=== PATIENT | male | born 1985 | race Caucasian/White ===

== ENCOUNTER 2018-09-04 19:21 | Emergency (ER) | payer OTHER ==
[2018-09-04 19:57] VITALS: TEMP 96.9
[2018-09-04] MEDS ORDERED: FOLIC ACID 1 MG TAB PO ONE (20:10)
[2018-09-04] MEDS ORDERED: LORAZEPAM 0.5 MG TAB PO ONE (20:11)
[2018-09-04] MEDS ORDERED: THIAMINE 100 MG TAB PO ONE (20:11)
[2018-09-04] MEDS ORDERED: SODIUM CHLORIDE 0.9% 1000ML 1,000 ML IV SCH (20:15)
[2018-09-04] MEDS ORDERED: ONDANSETRON 4 MG ODT BU ONE (20:21)
[2018-09-04] MEDS ORDERED: ONDANSETRON 4 MG ODT ONE (20:21)
[2018-09-04] MEDS ORDERED: LORAZEPAM 0.5 MG TAB ONE (20:21)
[2018-09-04] MEDS ORDERED: SODIUM CHLORIDE 0.9% FLUSH 10 ML SOL IV PRN (20:21)
[2018-09-04] MEDS ORDERED: THIAMINE 100 MG TAB ONE (20:22)
[2018-09-04] MEDS ORDERED: FOLIC ACID 1 MG TAB ONE (20:22)
[2018-09-04 20:26] LABS: BASOPHILS % (AUTO) 2 % (0-3); EOSINOPHILS % (AUTO) 2 % (0-9); HEMATOCRIT 50 % (39-53); HEMOGLOBIN 16.4 gm/dl (13.5-17.7); LYMPHOCYTES % (AUTO) 42.7 % (10-50); MEAN CORPUSCULAR HEMOGLOBIN 32.3 pg (27.0-32.0); MEAN CORPUSCULAR HGB CONC 32.9 gm/dl (32.0-36.0); MEAN CORPUSCULAR VOLUME 98 fL (80-100); MONOCYTES % (AUTO) 8.2 % (0-12); NEUTROPHILS % (AUTO) 45.2 % (37-80)
[2018-09-04 20:42] LABS: ALBUMIN 3.6 gm/dl (3.4-5.0); CALCIUM 8.5 mg/dl (8.5-10.1); CARBON DIOXIDE 23.6 mEq/L (21-32); CREATININE 1.12 mg/dl (0.80-1.30); POTASSIUM 3.3 mMol/L (3.5-5.1); TOTAL PROTEIN 7.5 gm/dl (6.4-8.2)
[2018-09-04 20:44] LABS: ALCOHOL 0.389 gm/dl (0.000-0.08)
[2018-09-04 21:10] LABS: AMPHETAMINES NEGATIVE (NEGATIVE); BARBITUATES NEGATIVE (NEGATIVE); BENZODIAZEPINES NEGATIVE (NEGATIVE); COCAINE(COC) NEGATIVE (NEGATIVE); METHADONE NEGATIVE (NEGATIVE); METHAMPHETAMINES NEGATIVE (NEGATIVE); OPIATES(OPI) NEGATIVE (NEGATIVE); OXYCODONE(OXY) NEGATIVE (NEGATIVE); PROPOXYPHENE(PPX) NEGATIVE (NEGATIVE)
[2018-09-04 21:11] LABS: CANNABINOL(THC) NEGATIVE (NEGATIVE)
[2018-09-04 21:17] LABS: TRICYCLIC ANTIDEPRESSANTS NEGATIVE (NEGATIVE)
[2018-09-04 21:42] VITALS: BP 161/97; PULSE 105; RESP 18; O2SAT 97
== END 2018-09-04 21:50 | disposition home or self-care (01) | DRG 897 ==
LOC: ED 19:21
DX: F10.129 Alcohol abuse with intoxication, unspecified (principal)
CPT/HCPCS: 36415; 80053; 80305; 80307; 85025; 96365; 99283; 99285; A9270-GY

== ENCOUNTER 2018-09-17 16:20 | Emergency (ER) | payer OTHER ==
[2018-09-17] MEDS: SODIUM CHLORIDE 0.9% 1000ML 1,000 ML IV SCH ×2 (17:05→18:16)
[2018-09-17] MEDS ORDERED: ONDANSETRON HCL 4 MG/2 ML SOL IV ONE (17:07)
[2018-09-17] MEDS ORDERED: ONDANSETRON HCL 4 MG/2 ML SOL ONE (17:08)
[2018-09-17 17:28] LABS: BASOPHILS % (AUTO) 2 % (0-3); EOSINOPHILS % (AUTO) 0 % (0-9); HEMATOCRIT 52 % (39-53); HEMOGLOBIN 17.4 gm/dl (13.5-17.7); MEAN CORPUSCULAR HEMOGLOBIN 32.7 pg (27.0-32.0); MEAN CORPUSCULAR HGB CONC 33.2 gm/dl (32.0-36.0); MEAN CORPUSCULAR VOLUME 98 fL (80-100); MONOCYTES % (AUTO) 12.9 % (0-12); NEUTROPHILS % (AUTO) 53.1 % (37-80)
[2018-09-17 17:35] LABS: INR 1.05 (0.86-1.12)
[2018-09-17 17:49] LABS: ALBUMIN 3.6 gm/dl (3.4-5.0); ALCOHOL 0.395 gm/dl (0.000-0.08); BILIRUBIN,TOTAL 1.1 mg/dl (0.2-1.0); CARBON DIOXIDE 28.2 mEq/L (21-32); CREATININE 1.15 mg/dl (0.80-1.30); MAGNESIUM 2.2 mg/dl (1.8-2.4); THYROID STIMULATING HORMONE 2.536 uIU/ml (0.358-3.740); TOTAL PROTEIN 7.7 gm/dl (6.4-8.2)
[2018-09-17 17:50] LABS: POTASSIUM 2.8 mMol/L (3.5-5.1)
[2018-09-17] MEDS ORDERED: POTASSIUM CHLORIDE 10 MEQ TER PO ONE (17:52)
[2018-09-17] MEDS ORDERED: POTASSIUM CHLORIDE 10 MEQ TER ONE (17:53)
[2018-09-17 17:58] LABS: AMPHETAMINES NEGATIVE (NEGATIVE); BARBITUATES NEGATIVE (NEGATIVE); BENZODIAZEPINES NEGATIVE (NEGATIVE); CANNABINOL(THC) NEGATIVE (NEGATIVE); COCAINE(COC) NEGATIVE (NEGATIVE); METHADONE NEGATIVE (NEGATIVE); METHAMPHETAMINES NEGATIVE (NEGATIVE); OPIATES(OPI) NEGATIVE (NEGATIVE); OXYCODONE(OXY) NEGATIVE (NEGATIVE); PROPOXYPHENE(PPX) NEGATIVE (NEGATIVE); TRICYCLIC ANTIDEPRESSANTS NEGATIVE (NEGATIVE)
[2018-09-17] MEDS ORDERED: NICOTINE 7 MG PATCH TD SCH (18:30)
[2018-09-17] MEDS ORDERED: PROCHLORPERAZINE EDISYLATE 5 MG/ML SOL IV ONE (18:36)
[2018-09-17] MEDS ORDERED: PROCHLORPERAZINE EDISYLATE 5 MG/ML SOL ONE (18:37)
[2018-09-17 18:58] VITALS: O2SAT 94
[2018-09-17 20:08] VITALS: BP 137/86; PULSE 98; RESP 18; TEMP 98.4
[2018-09-17] MEDS ORDERED: PROMETHAZINE HYDROCHLORIDE 25 MG/ML SOL IV ONE (20:50)
[2018-09-17] MEDS ORDERED: PROMETHAZINE HYDROCHLORIDE 25 MG/ML SOL ONE (20:53)
== END 2018-09-17 21:30 | disposition short-term general hospital (02) | DRG 897 ==
LOC: ED 16:20
DX: F10.129 Alcohol abuse with intoxication, unspecified (principal); Y90.8 Blood alcohol level of 240 mg/100 ml or more; F43.10 Post-traumatic stress disorder, unspecified
CPT/HCPCS: 80053; 80305; 80307; 83735; 84443; 85025; 85610; 96365; 96374; 96375; 99283; 99285; J0780; J2405; J2550; A9270-GY

== ENCOUNTER 2018-11-29 11:46 | Inpatient (IN) | payer SELFPAY ==
[~2018-11-29 11:46] MED LIST: HYDROCHLOROTHIAZIDE 25 MG TAB PO SCH
[2018-11-29] MEDS ORDERED: ONDANSETRON HCL 4 MG/2 ML SOL IV ONE (11:56)
[2018-11-29] MEDS ORDERED: PANTOPRAZOLE SODIUM 40 MG/10 ML PDS IV ONE (11:56)
[2018-11-29] MEDS ORDERED: DEXTROSE/SALINE 0.45% 1,000 ML IV ONE (11:56)
[2018-11-29] MEDS ORDERED: PANTOPRAZOLE SODIUM 40 MG/10 ML PDS ONE (12:09)
[2018-11-29] MEDS ORDERED: ONDANSETRON HCL 4 MG/2 ML SOL ONE (12:09)
[2018-11-29 12:14] LABS: BASOPHILS % (AUTO) 1 % (0-3); EOSINOPHILS % (AUTO) 0 % (0-9); HEMATOCRIT 44 % (39-53); LYMPHOCYTES % (AUTO) 13.3 % (10-50); MEAN CORPUSCULAR HEMOGLOBIN 31.9 pg (27.0-32.0); MEAN CORPUSCULAR HGB CONC 36.3 gm/dl (32.0-36.0); MEAN CORPUSCULAR VOLUME 88 fL (80-100); MONOCYTES % (AUTO) 7.6 % (0-12); NEUTROPHILS % (AUTO) 78.1 % (37-80)
[2018-11-29] MEDS ORDERED: POTASSIUM CHLORIDE 2 MEQ/ML 60 MEQ, LIDOCAINE HCL 1% MDV 2 ML in SODIUM CHLORIDE 0.9% 1... IV ONE ×2 (12:26→21:45)
[2018-11-29] MEDS ORDERED: POTASSIUM CHLORIDE 2 MEQ/ML SOL IV ONE ×2 (12:28→21:36)
[2018-11-29 12:36] LABS: ALBUMIN 3.1 gm/dl (3.4-5.0); ALKALINE PHOSPHATASE 114 IU/L (46-116); ALT 84 IU/L (14-63); AST 94 IU/L (15-37); BILIRUBIN,TOTAL 2.2 mg/dl (0.2-1.0); BLOOD UREA NITROGEN 13 mg/dl (7-18); CALCIUM 8.8 mg/dl (8.5-10.1); CARBON DIOXIDE 36.8 mEq/L (21-32); CHLORIDE 71 mMol/L (98-107); CREATININE 1.35 mg/dl (0.80-1.30); GLUCOSE 173 mg/dl (74-106); THYROID STIMULATING HORMONE 2.533 uIU/ml (0.358-3.740); TOTAL PROTEIN 6.7 gm/dl (6.4-8.2)
[2018-11-29] MEDS ORDERED: LIDOCAINE HCL 1% MPF 30 SOL ONE ×2 (12:36→21:36)
[2018-11-29 12:37] LABS: ALCOHOL < 0.003 gm/dl (0.000-0.08); POTASSIUM 1.8 mMol/L (3.5-5.1); SODIUM 116 mMol/L (136-145)
[2018-11-29] MEDS ORDERED: PROCHLORPERAZINE EDISYLATE 5 MG/ML SOL ONE (12:40)
[2018-11-29] MEDS ORDERED: PROCHLORPERAZINE EDISYLATE 5 MG/ML SOL IV ONE (12:40)
[2018-11-29 13:59] LABS: APPEARANCE,URINE Clear; BILIRUBIN,URINE NEGATIVE (NEGATIVE); COLOR,URINE Dark yellow; GLUCOSE, URINE (UA) TRACE (NEGATIVE); KETONES,URINE NEGATIVE (NEGATIVE); LEUKOCYTE ESTERASE ,URINE NEGATIVE (NEGATIVE); NITRATE,URINE NEGATIVE (NEGATIVE); OCCULT BLOOD,URINE 2+ (NEG-TRACE); UROBILINOGEN,URINE 0.2 (0.2-1.0 EU)
[2018-11-29 14:10] LABS: AMPHETAMINES NEGATIVE (NEGATIVE); BARBITUATES NEGATIVE (NEGATIVE); BENZODIAZEPINES NEGATIVE (NEGATIVE); CANNABINOL(THC) NEGATIVE (NEGATIVE); COCAINE(COC) NEGATIVE (NEGATIVE); METHADONE NEGATIVE (NEGATIVE); METHAMPHETAMINES NEGATIVE (NEGATIVE); OPIATES(OPI) NEGATIVE (NEGATIVE); OXYCODONE(OXY) NEGATIVE (NEGATIVE); PROPOXYPHENE(PPX) NEGATIVE (NEGATIVE); TRICYCLIC ANTIDEPRESSANTS NEGATIVE (NEGATIVE)
[2018-11-29 14:15] LABS: BACTERIA RARE (< 1+); CRYSTALS NEGATIVE (0-3 AVE/HPF); EPITHELIAL CELLS 0-1 (SQUAMOUS); RBC,URINE NEG (0-3AV/HPF); WBC,URINE NEG (0-5AV/HPF)
[2018-11-29] MEDS ORDERED: ONDANSETRON HCL 4 MG/2 ML SOL IV PRN (14:22)
[2018-11-29] MEDS ORDERED: SODIUM CHLORIDE IV ONE (14:46)
[2018-11-29] MEDS ORDERED: NICOTINE 21 MG PATCH TD SCH (15:00)
[2018-11-29 18:16] LABS: CALCIUM 8.1 mg/dl (8.5-10.1); CARBON DIOXIDE 40.4 mEq/L (21-32); CREATININE 1.12 mg/dl (0.80-1.30)
[2018-11-29 18:19] LABS: POTASSIUM 2.1 mMol/L (3.5-5.1)
[2018-11-29] MEDS ORDERED: POTASSIUM CHLORIDE 10 MEQ CAPSULE PO ONE (18:23)
[2018-11-29] MEDS ORDERED: LORAZEPAM 2 MG/ML 10ML MDV 2 MG/ML VIAL IV PRN ×3 (18:24→19:43)
[2018-11-29] MEDS ORDERED: LIDOCAINE HCL 2% (VISCOUS) 15 ML SOL MT ONE (18:29)
[2018-11-29] MEDS ORDERED: ALUMINUM/MAGNESIUM 30 ML SUS PO ONE (18:30)
[2018-11-29] MEDS ORDERED: POTASSIUM CHLORIDE 10 MEQ TER ONE (18:32)
[2018-11-29] MEDS ORDERED: LORAZEPAM 0.5 MG TAB PO PRN (19:40)
[2018-11-29] MEDS: THIAMINE 100 MG TAB PO SCH (19:49)
[2018-11-29] MEDS: FOLIC ACID 1 MG TAB PO SCH (19:50)
[2018-11-29 20:25] LABS: POTASSIUM 2.6 mMol/L (3.5-5.1)
[2018-11-29] MEDS ORDERED: MIRTAZAPINE 15 MG TAB PO SCH (21:00)
[2018-11-29] MEDS: LIDOCAINE HCL 2% (VISCOUS) 15 ML SOL MT PRN (21:29)
[2018-11-29] MEDS: ALUMINUM/MAGNESIUM 30 ML SUS PO PRN (21:29)
[2018-11-30] MEDS: ALUMINUM/MAGNESIUM 30 ML SUS PO PRN (00:21)
[2018-11-30] MEDS: LIDOCAINE HCL 2% (VISCOUS) 15 ML SOL MT PRN (00:21)
[2018-11-30] MEDS: POTASSIUM CHLORIDE 10 MEQ CAPSULE PO SCH ×2 (03:24→03:25)
[2018-11-30 08:27] LABS: CALCIUM 8.4 mg/dl (8.5-10.1); CARBON DIOXIDE 36.6 mEq/L (21-32); CREATININE 1.11 mg/dl (0.80-1.30)
[2018-11-30 08:40] LABS: POTASSIUM 2.9 mMol/L (3.5-5.1)
[2018-11-30] MEDS: FOLIC ACID 1 MG TAB PO SCH (08:46)
[2018-11-30] MEDS: THIAMINE 100 MG TAB PO SCH (08:46)
[2018-11-30 08:50] VITALS: BP 138/82; PULSE 105; RESP 20; TEMP 98.2; O2SAT 95
[2018-11-30] MEDS ORDERED: PANTOPRAZOLE SODIUM 40 MG/10 ML PDS IV SCH (09:00)
[2018-12-04 14:41] LABS: *ALDOSTERONE 20 ng/dL (<=21)
[2018-12-04 14:59] LABS: *RENIN PLASMA LEVEL 30 ng/mL/h
== END 2018-11-30 10:07 | disposition left against medical advice (07) | DRG 101 ==
LOC: ED 11:46 → UNDOADMIN 13:30 → ACUTE CARE 13:30
PROVIDERS: ADMIT Family Medicine; ATTEND Family Medicine
DX: R56.9 Unspecified convulsions (principal); E87.1 Hypo-osmolality and hyponatremia; Z72.89 Other problems related to lifestyle; E87.6 Hypokalemia; R79.89 Other specified abnormal findings of blood chemistry; Z53.21 Procedure and treatment not carried out due to patient leaving prior to being seen by health care provider
CPT/HCPCS: 36415; 70450; 74176; 80048; 80053; 80305; 80307; 81001; 83735; 84132; 84295; 84443; 85025; 93005; 93012; 96365; 96374; 96375; 99222; 99231; 99285; J0780; J2405; J3480; A9270-GY; J2001

== ENCOUNTER 2018-12-11 19:21 | Inpatient (IN) | payer SELFPAY ==
[2018-12-11] MEDS ORDERED: SODIUM CHLORIDE 0.9% 1000ML 1,000 ML IV ONE ×2 (19:27→23:34)
[2018-12-11] MEDS ORDERED: THIAMINE 100 MG/ML 100 MG/ML SOL IV ONE (19:28)
[2018-12-11] MEDS ORDERED: ONDANSETRON HCL 4 MG/2 ML SOL IV ONE (19:29)
[2018-12-11] MEDS ORDERED: LORAZEPAM 2 MG/ML 10ML MDV 2 MG/ML VIAL IV PRN (19:31)
[2018-12-11 19:37] LABS: HEMATOCRIT 53 % (39-53); MEAN CORPUSCULAR HEMOGLOBIN 31.8 pg (27.0-32.0); MEAN CORPUSCULAR HGB CONC 34.7 gm/dl (32.0-36.0); MEAN CORPUSCULAR VOLUME 92 fL (80-100)
[2018-12-11] MEDS ORDERED: ONDANSETRON HCL 4 MG/2 ML SOL ONE (19:39)
[2018-12-11] MEDS ORDERED: THIAMINE 100 MG/ML 100 MG/ML SOL ONE (19:39)
[2018-12-11 19:42] LABS: HEMOGLOBIN 18.4 gm/dl (13.5-17.7)
[2018-12-11 19:49] LABS: ALBUMIN 3.8 gm/dl (3.4-5.0); ALKALINE PHOSPHATASE 147 IU/L (46-116); ALT 123 IU/L (14-63); AST 63 IU/L (15-37); BILIRUBIN,TOTAL 1.4 mg/dl (0.2-1.0); BLOOD UREA NITROGEN 18 mg/dl (7-18); CALCIUM 8.6 mg/dl (8.5-10.1); CARBON DIOXIDE 33.7 mEq/L (21-32); CHLORIDE 81 mMol/L (98-107); CREATININE 1.99 mg/dl (0.80-1.30); GLUCOSE 139 mg/dl (74-106); MAGNESIUM 1.8 mg/dl (1.8-2.4); SODIUM 132 mMol/L (136-145); TOTAL PROTEIN 8.2 gm/dl (6.4-8.2)
[2018-12-11 19:50] LABS: ALCOHOL 0.172 gm/dl (0.000-0.08)
[2018-12-11 19:51] LABS: ACETAMINOPHEN < 2 ug/ml (10-30); POTASSIUM 2.2 mMol/L (3.5-5.1); SALICYLATE < 2.8 mg/dl (2.8-30.0)
[2018-12-11] MEDS ORDERED: POTASSIUM CHLORIDE 2 MEQ/ML 60 MEQ, LIDOCAINE HCL 1% MDV 2 ML in SODIUM CHLORIDE 0.9% 1... IV ONE (19:51)
[2018-12-11 19:59] LABS: BAND NEUTROPHILS % (MANUAL) 6 %; BASOPHILS % (MANUAL) 0 % (0-3); EOSINOPHILS % (MANUAL) 0 % (0-9); LYMPHOCYTES % (MANUAL) 7 % (10-50); MONOCYTES % (MANUAL) 3 % (0-12); NEUTROPHILS % (MANUAL) 84 % (37-80); NORMAL RBCS PRESENT
[2018-12-11] MEDS ORDERED: MAGNESIUM SULFATE 1 GM/2 ML SOL IV ONE (20:12)
[2018-12-11] MEDS ORDERED: LIDOCAINE HCL 1% MPF 30 SOL ONE (20:14)
[2018-12-11] MEDS ORDERED: POTASSIUM CHLORIDE 2 MEQ/ML SOL IV ONE (20:14)
[2018-12-11] MEDS ORDERED: MAGNESIUM SULFATE 5 GM/10 ML SOL ONE (20:59)
[2018-12-11] MEDS ORDERED: ALUMINUM/MAGNESIUM 30 ML SUS PO PRN (21:56)
[2018-12-11 22:08] LABS: APPEARANCE,URINE Clear; BILIRUBIN,URINE 1+ (NEGATIVE); COLOR,URINE Orange; GLUCOSE, URINE (UA) NEGATIVE (NEGATIVE); KETONES,URINE 1+ (NEGATIVE); LEUKOCYTE ESTERASE ,URINE NEGATIVE (NEGATIVE); NITRATE,URINE POSITIVE (NEGATIVE); OCCULT BLOOD,URINE 2+ (NEG-TRACE)
[2018-12-11 22:16] LABS: ICTOTEST,URINE NEGATIVE (NEGATIVE); RBC,URINE 0-2 (0-3AV/HPF)
[2018-12-11 22:17] LABS: AMPHETAMINES NEGATIVE (NEGATIVE); BACTERIA 1+ (< 1+); BARBITUATES NEGATIVE (NEGATIVE); BENZODIAZEPINES NEGATIVE (NEGATIVE); CANNABINOL(THC) NEGATIVE (NEGATIVE); COCAINE(COC) NEGATIVE (NEGATIVE); CRYSTALS NEGATIVE (0-3 AVE/HPF); METHADONE NEGATIVE (NEGATIVE); METHAMPHETAMINES NEGATIVE (NEGATIVE); OPIATES(OPI) NEGATIVE (NEGATIVE); OXYCODONE(OXY) NEGATIVE (NEGATIVE); PROPOXYPHENE(PPX) NEGATIVE (NEGATIVE); TRICYCLIC ANTIDEPRESSANTS POSITIVE (NEGATIVE); WBC,URINE 0-2 (0-5AV/HPF)
[2018-12-11 22:39] LABS: CALCIUM 7.5 mg/dl (8.5-10.1); CARBON DIOXIDE 31.4 mEq/L (21-32); CREATININE 1.6 mg/dl (0.80-1.30)
[2018-12-11 22:42] LABS: POTASSIUM 2.1 mMol/L (3.5-5.1)
[2018-12-11] MEDS: ONDANSETRON HCL 4 MG/2 ML SOL IV PRN (22:55)
[2018-12-11] MEDS: LORAZEPAM 2 MG/ML SOL IV PRN ×2 (23:14→23:39)
[2018-12-11] MEDS: SODIUM CHLORIDE 0.9% 1000ML 1,000 ML IV ONE (23:20)
[2018-12-11] MEDS: SODIUM CHLORIDE 0.9% FLUSH 10 ML SOL IV SCH (23:21)
[2018-12-12] MEDS: SODIUM CHLORIDE 0.9% 1000ML 1,000 ML IV ONE (00:19)
[2018-12-12] MEDS: LORAZEPAM 2 MG/ML SOL IV PRN ×2 (02:08→04:06)
[2018-12-12] MEDS ORDERED: POTASSIUM CHLORIDE 2 MEQ/ML 60 MEQ, LIDOCAINE HCL 1% MDV 2 ML in SODIUM CHLORIDE 0.9% 1... IV ONE (05:45)
[2018-12-12] MEDS ORDERED: POTASSIUM CHLORIDE 2 MEQ/ML SOL IV ONE ×2 (05:58→05:59)
[2018-12-12] MEDS ORDERED: LIDOCAINE HCL 1% MPF 30 SOL ONE (06:03)
[2018-12-12] MEDS: ONDANSETRON HCL 4 MG/2 ML SOL IV PRN (06:11)
[2018-12-12] MEDS: SODIUM CHLORIDE 0.9% FLUSH 10 ML SOL IV SCH (06:14)
[2018-12-12] MEDS ORDERED: SODIUM CHLORIDE 0.9% 1000ML 1,000 ML IV SCH (07:15)
[2018-12-12 07:23] LABS: BASOPHILS % (AUTO) 1 % (0-3); EOSINOPHILS % (AUTO) 0 % (0-9); HEMATOCRIT 46 % (39-53); HEMOGLOBIN 15.5 gm/dl (13.5-17.7); LYMPHOCYTES % (AUTO) 15.5 % (10-50); MEAN CORPUSCULAR HEMOGLOBIN 31.9 pg (27.0-32.0); MEAN CORPUSCULAR HGB CONC 33.6 gm/dl (32.0-36.0); MEAN CORPUSCULAR VOLUME 95 fL (80-100); MONOCYTES % (AUTO) 7.5 % (0-12); NEUTROPHILS % (AUTO) 76.4 % (37-80)
[2018-12-12 07:43] LABS: BILIRUBIN,DIRECT 0.4 mg/dl (0.0-0.2); BILIRUBIN,TOTAL 1.6 mg/dl (0.2-1.0); MAGNESIUM 2.2 mg/dl (1.8-2.4); TOTAL PROTEIN 6.4 gm/dl (6.4-8.2)
[2018-12-12 07:44] LABS: ALCOHOL 0.004 gm/dl (0.000-0.08)
[2018-12-12] MEDS ORDERED: LORAZEPAM 0.5 MG TAB PO PRN (07:55)
[2018-12-12] MEDS ORDERED: FLUMAZENIL 1 MG/10 ML SOL IV ONE (08:32)
[2018-12-12 08:43] LABS: ABG PH 7.52 (7.35-7.45)
[2018-12-12] MEDS ORDERED: FOLIC ACID 1 MG TAB PO SCH (09:00)
[2018-12-12] MEDS ORDERED: THIAMINE 100 MG TAB PO SCH (09:00)
[2018-12-12] MEDS ORDERED: MULTIVITAMIN2 1 EA TAB PO SCH (09:00)
[2018-12-12] MEDS ORDERED: PATIENT EDUCATION 1 MISC PRN (09:16)
[2018-12-12 10:06] VITALS: BP 125/78; PULSE 97; RESP 20; TEMP 99.7; O2SAT 96
== END 2018-12-12 10:15 | disposition short-term general hospital (02) | DRG 641 ==
LOC: ED 19:21 → ACUTE CARE 21:31 → OBSVTOIN 12-12 08:20
PROVIDERS: ADMIT Internal Medicine; ATTEND Internal Medicine
DX: E83.42 Hypomagnesemia (principal); F10.231 Alcohol dependence with withdrawal delirium; F10.10 Alcohol abuse, uncomplicated; E87.6 Hypokalemia; Y90.6 Blood alcohol level of 120-199 mg/100 ml; R40.2362 Coma scale, best motor response, obeys commands, at arrival to emergency department; R40.2142 Coma scale, eyes open, spontaneous, at arrival to emergency department; R40.2252 Coma scale, best verbal response, oriented, at arrival to emergency department
CPT/HCPCS: 36415; 36600; 71045; 80048; 80053; 80076; 80305; 80307; 81001; 82803; 83735; 84132; 85007; 85025; 85027; 93005; 93012; 94762; 96365; 96366; 96374; 96375; 99219; 99285; J2060; J2405; J3475; J3480; A9270-GY; J2001; J3411; J3490

== ENCOUNTER 2018-12-15 19:14 | Emergency (ER) | payer SELFPAY ==
[2018-12-15 19:14] VITALS: O2SAT 96
[2018-12-15 21:44] VITALS: BP 142/99; PULSE 108
== END 2018-12-15 20:56 | disposition home or self-care (01) | DRG 563 ==
LOC: ED 19:14
DX: S62.339A Displaced fracture of neck of unspecified metacarpal bone, initial encounter for closed fracture (principal); S62.337A Displaced fracture of neck of fifth metacarpal bone, left hand, initial encounter for closed fracture; W22.01XA Walked into wall, initial encounter
CPT/HCPCS: 29125; 73130; 99282

== ENCOUNTER 2019-01-02 18:43 | Observation (INO) | payer MEDICAID ==
[2019-01-02] MEDS ORDERED: ONDANSETRON HCL 4 MG/2 ML SOL IV ONE (19:02)
[2019-01-02] MEDS ORDERED: ONDANSETRON HCL 4 MG/2 ML SOL ONE (19:03)
[2019-01-02] MEDS: SODIUM CHLORIDE 0.9% 1000ML 1,000 ML IV SCH ×4 (19:05→23:00)
[2019-01-02 19:47] LABS: BASOPHILS % (AUTO) 1 % (0-3); EOSINOPHILS % (AUTO) 0 % (0-9); HEMATOCRIT 52 % (39-53); LYMPHOCYTES % (AUTO) 11.1 % (10-50); MEAN CORPUSCULAR HEMOGLOBIN 31.3 pg (27.0-32.0); MEAN CORPUSCULAR HGB CONC 35.7 gm/dl (32.0-36.0); MEAN CORPUSCULAR VOLUME 88 fL (80-100); NEUTROPHILS % (AUTO) 80.3 % (37-80)
[2019-01-02 19:56] LABS: HEMOGLOBIN 18.5 gm/dl (13.5-17.7)
[2019-01-02] MEDS ORDERED: PROCHLORPERAZINE EDISYLATE 5 MG/ML SOL ONE (20:07)
[2019-01-02 20:12] LABS: ALBUMIN 3.1 gm/dl (3.4-5.0); BILIRUBIN,TOTAL 1.3 mg/dl (0.2-1.0); CALCIUM 8.3 mg/dl (8.5-10.1); CARBON DIOXIDE 36.1 mEq/L (21-32); CREATININE 1.24 mg/dl (0.80-1.30); MAGNESIUM 2.3 mg/dl (1.8-2.4)
[2019-01-02 20:14] LABS: POTASSIUM 1.7 mMol/L (3.5-5.1)
[2019-01-02] MEDS ORDERED: PROCHLORPERAZINE EDISYLATE 5 MG/ML SOL IV PRN (20:15)
[2019-01-02] MEDS ORDERED: POTASSIUM CHLORIDE 2 MEQ/ML SOL IV ONE (20:17)
[2019-01-02] MEDS ORDERED: POTASSIUM CHLORIDE 2 MEQ/ML 60 MEQ, LIDOCAINE HCL 1% MDV 2 ML in SODIUM CHLORIDE 0.9% 1... IV ONE (21:05)
[2019-01-02] MEDS ORDERED: LORAZEPAM 2 MG/ML SOL IV ONE (21:16)
[2019-01-02] MEDS ORDERED: LORAZEPAM 2 MG/ML SOL ONE (21:46)
[2019-01-02] MEDS ORDERED: LIDOCAINE HCL 1% MPF 30 SOL ONE (21:46)
[2019-01-02] MEDS: SODIUM CHLORIDE 0.9% FLUSH 10 ML SOL IV SCH (22:45)
[2019-01-02] MEDS: LORAZEPAM 0.5 MG TAB PO PRN (23:27)
[2019-01-03] MEDS: ONDANSETRON HCL 4 MG/2 ML SOL IV PRN ×3 (01:27→20:14)
[2019-01-03] MEDS: SODIUM CHLORIDE 0.9% 1000ML 1,000 ML IV SCH (03:06)
[2019-01-03] MEDS ORDERED: POTASSIUM CHLORIDE 10 MEQ TER PO ONE (03:26)
[2019-01-03] MEDS ORDERED: FUROSEMIDE 20mg SOL IV ONE (03:26)
[2019-01-03] MEDS: PROMETHAZINE HYDROCHLORIDE 25 MG/ML SOL IV PRN ×2 (03:48→18:41)
[2019-01-03] MEDS: LORAZEPAM 2 MG/ML SOL IV PRN ×3 (04:24→11:46)
[2019-01-03] MEDS: SODIUM CHLORIDE 0.9% FLUSH 10 ML SOL IV SCH ×6 (05:38→20:15)
[2019-01-03 07:29] LABS: ALBUMIN 2.5 gm/dl (3.4-5.0); BILIRUBIN,TOTAL 1.6 mg/dl (0.2-1.0); CARBON DIOXIDE 41.4 mEq/L (21-32); CREATININE 1.28 mg/dl (0.80-1.30); TOTAL PROTEIN 5.6 gm/dl (6.4-8.2)
[2019-01-03 07:42] LABS: POTASSIUM 2.8 mMol/L (3.5-5.1)
[2019-01-03 07:43] LABS: AMPHETAMINES NEGATIVE (NEGATIVE); BARBITUATES NEGATIVE (NEGATIVE); BENZODIAZEPINES POSITIVE (NEGATIVE); CANNABINOL(THC) NEGATIVE (NEGATIVE); COCAINE(COC) NEGATIVE (NEGATIVE); METHADONE NEGATIVE (NEGATIVE); METHAMPHETAMINES NEGATIVE (NEGATIVE); OPIATES(OPI) NEGATIVE (NEGATIVE); OXYCODONE(OXY) NEGATIVE (NEGATIVE); PROPOXYPHENE(PPX) NEGATIVE (NEGATIVE); TRICYCLIC ANTIDEPRESSANTS NEGATIVE (NEGATIVE)
[2019-01-03] MEDS ORDERED: POTASSIUM CHLORIDE 10 MEQ TER PO SCH (08:45)
[2019-01-03] MEDS: POTASSIUM CHLORIDE 10 MEQ TER PO SCH ×6 (09:17→23:56)
[2019-01-03] MEDS ORDERED: PROCHLORPERAZINE EDISYLATE 5 MG/ML SOL ONE (11:00)
[2019-01-03] MEDS: PROCHLORPERAZINE EDISYLATE 5 MG/ML SOL IV PRN (11:02)
[2019-01-03] MEDS: FOLIC ACID 1 MG TAB PO SCH (11:38)
[2019-01-03] MEDS: THIAMINE 100 MG TAB PO SCH (11:39)
[2019-01-03] MEDS: MULTIVITAMIN2 1 EA TAB PO SCH (11:39)
[2019-01-03] MEDS ORDERED: PROCHLORPERAZINE EDISYLATE 5 MG/ML SOL IV SCH (14:00)
[2019-01-03 18:08] LABS: CALCIUM 7.4 mg/dl (8.5-10.1); CARBON DIOXIDE 38.9 mEq/L (21-32); CREATININE 1.42 mg/dl (0.80-1.30); POTASSIUM 3.3 mMol/L (3.5-5.1)
[2019-01-03] MEDS: ALUMINUM/MAGNESIUM 30 ML SUS PO PRN (18:40)
[2019-01-03] MEDS: LORAZEPAM 0.5 MG TAB PO PRN ×2 (19:32→22:49)
[2019-01-03] MEDS ORDERED: NICOTINE 7 MG PATCH TD SCH (21:00)
[2019-01-04] MEDS: SODIUM CHLORIDE 0.9% FLUSH 10 ML SOL IV SCH ×2 (00:01→07:37)
[2019-01-04 00:14] VITALS: RESP 16
[2019-01-04] MEDS: LORAZEPAM 0.5 MG TAB PO PRN (01:01)
[2019-01-04] MEDS: ALUMINUM/MAGNESIUM 30 ML SUS PO PRN (01:50)
[2019-01-04] MEDS: PROCHLORPERAZINE EDISYLATE 5 MG/ML SOL IV PRN ×2 (07:37)
[2019-01-04 07:39] LABS: ALBUMIN 2.7 gm/dl (3.4-5.0); BILIRUBIN,TOTAL 1.1 mg/dl (0.2-1.0); CALCIUM 7.7 mg/dl (8.5-10.1); CARBON DIOXIDE 33.9 mEq/L (21-32); CREATININE 1.14 mg/dl (0.80-1.30); POTASSIUM 3.6 mMol/L (3.5-5.1); TOTAL PROTEIN 5.9 gm/dl (6.4-8.2)
[2019-01-04 07:44] VITALS: BP 123/69; PULSE 99; TEMP 98; O2SAT 98
[2019-01-04 07:59] LABS: BASOPHILS % (AUTO) 1 % (0-3); EOSINOPHILS % (AUTO) 0 % (0-9); HEMATOCRIT 44 % (39-53); HEMOGLOBIN 14.9 gm/dl (13.5-17.7); LYMPHOCYTES % (AUTO) 21.8 % (10-50); MEAN CORPUSCULAR HEMOGLOBIN 31.4 pg (27.0-32.0); MEAN CORPUSCULAR HGB CONC 33.6 gm/dl (32.0-36.0); MEAN CORPUSCULAR VOLUME 93 fL (80-100); MONOCYTES % (AUTO) 8.2 % (0-12); NEUTROPHILS % (AUTO) 68.7 % (37-80)
[2019-01-04] MEDS: THIAMINE 100 MG TAB PO SCH (10:00)
[2019-01-04] MEDS: MULTIVITAMIN2 1 EA TAB PO SCH (10:01)
[2019-01-04] MEDS: FOLIC ACID 1 MG TAB PO SCH (10:01)
== END 2019-01-04 11:30 | disposition home or self-care (01) | DRG 641 ==
LOC: ED 18:43 → ACUTE CARE 21:40
PROVIDERS: ADMIT Family Medicine; ATTEND Family Medicine
DX: E87.6 Hypokalemia (principal); E87.1 Hypo-osmolality and hyponatremia; R55 Syncope and collapse; F10.10 Alcohol abuse, uncomplicated; R79.89 Other specified abnormal findings of blood chemistry
CPT/HCPCS: 36415; 80048; 80053; 80305; 80307; 83735; 85025; 93012; 96365; 96366; 96374; 96375; 99217; 99219; 99285; J0780; J1940; J2060; J2405; J2550; J3480; A9270-GY; J2001

== ENCOUNTER 2019-01-19 06:55 | Emergency (ER) | payer MEDICAID ==
[2019-01-19] MEDS ORDERED: LORAZEPAM 2 MG/ML SOL ONE ×2 (07:06→09:19)
[2019-01-19] MEDS ORDERED: LORAZEPAM 2 MG/ML SOL IV ONE ×3 (07:08→09:20)
[2019-01-19] MEDS ORDERED: THIAMINE 100 MG/ML 100 MG/ML SOL IM ONE (07:12)
[2019-01-19] MEDS ORDERED: MAGNESIUM SULFATE 1 GM/2 ML SOL IV ONE (07:14)
[2019-01-19] MEDS ORDERED: FOLIC ACID 1 MG TAB PO ONE (07:14)
[2019-01-19] MEDS ORDERED: SODIUM CHLORIDE 0.9% 1000ML 1,000 ML IV NR (07:15)
[2019-01-19 07:22] VITALS: TEMP 99.4
[2019-01-19] MEDS ORDERED: THIAMINE 100 MG/ML 100 MG/ML SOL ONE (07:27)
[2019-01-19] MEDS ORDERED: FOLIC ACID 1 MG TAB ONE (07:27)
[2019-01-19 07:34] LABS: HEMATOCRIT 55 % (39-53); HEMOGLOBIN 18.5 gm/dl (13.5-17.7); MEAN CORPUSCULAR HEMOGLOBIN 30.9 pg (27.0-32.0); MEAN CORPUSCULAR HGB CONC 33.8 gm/dl (32.0-36.0); MEAN CORPUSCULAR VOLUME 92 fL (80-100)
[2019-01-19 07:46] LABS: ALBUMIN 3.7 gm/dl (3.4-5.0); ALKALINE PHOSPHATASE 175 IU/L (46-116); ALT 81 IU/L (14-63); AST 81 IU/L (15-37); BILIRUBIN,TOTAL 1.8 mg/dl (0.2-1.0); BLOOD UREA NITROGEN 26 mg/dl (7-18); CALCIUM 7.9 mg/dl (8.5-10.1); CARBON DIOXIDE 42.5 mEq/L (21-32); CHLORIDE 77 mMol/L (98-107); CREATININE 3.49 mg/dl (0.80-1.30); GLUCOSE 132 mg/dl (74-106); MAGNESIUM 0.9 mg/dl (1.8-2.4); SODIUM 133 mMol/L (136-145); TOTAL PROTEIN 8.1 gm/dl (6.4-8.2)
[2019-01-19] MEDS ORDERED: SODIUM CHLORIDE 0.9% 1000ML 1,000 ML IV ONE ×2 (07:50→08:48)
[2019-01-19 07:52] LABS: ABG PH 7.69 (7.35-7.45)
[2019-01-19 07:54] LABS: ALCOHOL < 0.003 gm/dl (0.000-0.08)
[2019-01-19 07:55] LABS: POTASSIUM 2.5 mMol/L (3.5-5.1)
[2019-01-19] MEDS ORDERED: MAGNESIUM SULFATE 5 GM/10 ML SOL ONE (07:57)
[2019-01-19] MEDS ORDERED: POTASSIUM CHLORIDE 2 MEQ/ML SOL IV ONE (07:57)
[2019-01-19] MEDS ORDERED: POTASSIUM CHLORIDE 2 MEQ/ML 60 MEQ, LIDOCAINE HCL 1% MDV 2 ML in SODIUM CHLORIDE 0.9% 1... IV ONE (07:59)
[2019-01-19] MEDS ORDERED: POTASSIUM CHLORIDE 10 MEQ TER PO ONE (07:59)
[2019-01-19] MEDS ORDERED: LIDOCAINE HCL 1% MPF 30 SOL ONE (08:06)
[2019-01-19 08:15] LABS: BAND NEUTROPHILS % (MANUAL) 8 %; EOSINOPHILS % (MANUAL) 0 % (0-9); LYMPHOCYTES % (MANUAL) 10 % (10-50); MONOCYTES % (MANUAL) 9 % (0-12); NEUTROPHILS % (MANUAL) 73 % (37-80)
[2019-01-19 08:16] LABS: BASOPHILS % (MANUAL) 0 % (0-3); NORMAL RBCS PRESENT
[2019-01-19] MEDS ORDERED: POTASSIUM CHLORIDE 10 MEQ TER ONE (08:17)
[2019-01-19] MEDS ORDERED: ONDANSETRON HCL 4 MG/2 ML SOL IV ONE (08:19)
[2019-01-19] MEDS ORDERED: ONDANSETRON HCL 4 MG/2 ML SOL ONE (08:19)
[2019-01-19] MEDS ORDERED: PROCHLORPERAZINE EDISYLATE 5 MG/ML SOL ONE (08:48)
[2019-01-19] MEDS ORDERED: PROCHLORPERAZINE EDISYLATE 5 MG/ML SOL IV ONE (08:48)
[2019-01-19 11:40] VITALS: BP 177/104; PULSE 115; RESP 25; O2SAT 97
== END 2019-01-19 09:52 | disposition short-term general hospital (02) | DRG 897 ==
LOC: ED 06:55
DX: F10.239 Alcohol dependence with withdrawal, unspecified (principal); R61 Generalized hyperhidrosis; R00.0 Tachycardia, unspecified; M62.838 Other muscle spasm; E87.6 Hypokalemia; E86.0 Dehydration
CPT/HCPCS: 36415; 36600; 70450; 80053; 80307; 82803; 83735; 85007; 85027; 93005; 96365; 96366; 96372; 96374; 96375; 99284; 99285; J0780; J2060; J2405; J3475; J3480; A9270-GY; J2001; J3411

== ENCOUNTER 2019-02-04 18:27 | Emergency (ER) | payer MEDICAID ==
[2019-02-04] MEDS ORDERED: THIAMINE 100 MG/ML 100 MG/ML SOL IV ONE (19:11)
[2019-02-04] MEDS ORDERED: FOLIC ACID 1 MG TAB PO ONE (19:11)
[2019-02-04] MEDS ORDERED: SODIUM CHLORIDE 0.9% 1000ML 1,000 ML IV ONE ×2 (19:11→20:19)
[2019-02-04] MEDS ORDERED: MAGNESIUM SULFATE 1 GM/2 ML SOL IV ONE (19:11)
[2019-02-04 19:15] LABS: BASOPHILS % (AUTO) 1 % (0-3); EOSINOPHILS % (AUTO) 0 % (0-9); HEMATOCRIT 54 % (39-53); HEMOGLOBIN 17.8 gm/dl (13.5-17.7); MEAN CORPUSCULAR HGB CONC 33.1 gm/dl (32.0-36.0); MEAN CORPUSCULAR VOLUME 94 fL (80-100); MONOCYTES % (AUTO) 7.8 % (0-12); NEUTROPHILS % (AUTO) 62.2 % (37-80)
[2019-02-04] MEDS ORDERED: ONDANSETRON HCL 4 MG/2 ML SOL IV ONE ×2 (19:15→19:56)
[2019-02-04] MEDS ORDERED: MAGNESIUM SULFATE 5 GM/10 ML SOL ONE (19:17)
[2019-02-04] MEDS ORDERED: THIAMINE 100 MG/ML 100 MG/ML SOL ONE (19:17)
[2019-02-04] MEDS ORDERED: ONDANSETRON HCL 4 MG/2 ML SOL ONE ×2 (19:17→19:55)
[2019-02-04] MEDS ORDERED: FOLIC ACID 1 MG TAB ONE (19:17)
[2019-02-04] MEDS: SODIUM CHLORIDE 0.9% FLUSH 10 ML SOL IV PRN ×3 (19:23→22:00)
[2019-02-04 19:35] LABS: AMPHETAMINES NEGATIVE (NEGATIVE); BARBITUATES NEGATIVE (NEGATIVE); BENZODIAZEPINES POSITIVE (NEGATIVE); CANNABINOL(THC) NEGATIVE (NEGATIVE); COCAINE(COC) NEGATIVE (NEGATIVE); METHADONE NEGATIVE (NEGATIVE); METHAMPHETAMINES NEGATIVE (NEGATIVE); OPIATES(OPI) NEGATIVE (NEGATIVE); OXYCODONE(OXY) NEGATIVE (NEGATIVE); PROPOXYPHENE(PPX) NEGATIVE (NEGATIVE); TRICYCLIC ANTIDEPRESSANTS NEGATIVE (NEGATIVE)
[2019-02-04] MEDS ORDERED: POTASSIUM CHLORIDE 2 MEQ/ML SOL IV ONE ×2 (19:35→19:37)
[2019-02-04 19:38] LABS: ALBUMIN 3.4 gm/dl (3.4-5.0); BILIRUBIN,TOTAL 0.5 mg/dl (0.2-1.0); CALCIUM 8.4 mg/dl (8.5-10.1); CARBON DIOXIDE 28.3 mEq/L (21-32); CREATININE 0.98 mg/dl (0.80-1.30); TOTAL PROTEIN 7.8 gm/dl (6.4-8.2)
[2019-02-04 19:39] LABS: POTASSIUM 2.3 mMol/L (3.5-5.1)
[2019-02-04 19:40] LABS: ALCOHOL 0.401 gm/dl (0.000-0.08)
[2019-02-04] MEDS ORDERED: SODIUM CHLORIDE IV ONE (19:46)
[2019-02-04] MEDS ORDERED: POTASSIUM CHLORIDE IV ONE (19:46)
[2019-02-04] MEDS ORDERED: PROCHLORPERAZINE EDISYLATE 5 MG/ML SOL IV ONE (20:18)
[2019-02-04] MEDS ORDERED: PROCHLORPERAZINE EDISYLATE 5 MG/ML SOL ONE (20:21)
[2019-02-04] MEDS ORDERED: NICOTINE 7 MG PATCH ONE (20:23)
[2019-02-04] MEDS ORDERED: NICOTINE 7 MG PATCH TD SCH (20:30)
[2019-02-04] MEDS ORDERED: LIDOCAINE HCL 1% MPF 30 SOL ONE (20:41)
[2019-02-04] MEDS ORDERED: POTASSIUM CHLORIDE 10 MEQ TER PO ONE (20:51)
[2019-02-04] MEDS ORDERED: POTASSIUM CHLORIDE 10 MEQ TER ONE (20:52)
[2019-02-04] MEDS ORDERED: PROMETHAZINE HYDROCHLORIDE 25 MG/ML SOL ONE ×2 (21:51→22:43)
[2019-02-04] MEDS ORDERED: ACETAMINOPHEN 500 MG 500 MG TAB ONE (21:51)
[2019-02-04] MEDS ORDERED: ACETAMINOPHEN 500 MG 500 MG TAB PO ONE (22:05)
[2019-02-04] MEDS ORDERED: PROMETHAZINE HYDROCHLORIDE 25 MG/ML SOL IV ONE ×2 (22:05→22:35)
[2019-02-05] MEDS ORDERED: PROCHLORPERAZINE EDISYLATE 5 MG/ML SOL IV ONE (00:38)
[2019-02-05] MEDS ORDERED: PROCHLORPERAZINE EDISYLATE 5 MG/ML SOL ONE (00:39)
[2019-02-05] MEDS: SODIUM CHLORIDE 0.9% FLUSH 10 ML SOL IV PRN ×2 (00:43→01:30)
[2019-02-05] MEDS ORDERED: SODIUM CHLORIDE 0.9% 1000ML 1,000 ML IV ONE (01:14)
[2019-02-05] MEDS ORDERED: PANTOPRAZOLE SODIUM 40 MG/10 ML PDS IV ONE (01:21)
[2019-02-05] MEDS ORDERED: PANTOPRAZOLE SODIUM 40 MG/10 ML PDS ONE (01:26)
[2019-02-05 02:38] LABS: POTASSIUM 3.4 mMol/L (3.5-5.1)
[2019-02-05 02:39] LABS: ALCOHOL 0.078 gm/dl (0.000-0.08)
[2019-02-05] MEDS ORDERED: ONDANSETRON HCL 4 MG/2 ML SOL IV PRN (02:48)
[2019-02-05] MEDS ORDERED: LORAZEPAM 2 MG/ML SOL IV ONE (02:48)
[2019-02-05] MEDS ORDERED: LORAZEPAM 2 MG/ML SOL ONE (02:52)
[2019-02-05] MEDS ORDERED: SODIUM CHLORIDE 0.9% IV ONE (02:55)
[2019-02-05] MEDS ORDERED: POTASSIUM CHLORIDE IV ONE (02:55)
[2019-02-05] MEDS ORDERED: POTASSIUM CHLORIDE 2 MEQ/ML SOL IV ONE (03:05)
[2019-02-05] MEDS ORDERED: LIDOCAINE HCL 1% MPF 30 SOL ONE (03:08)
[2019-02-05] MEDS ORDERED: LIDOCAINE HCL 1% MPF 30 SOL INFIL ONE (03:13)
[2019-02-05 09:19] VITALS: RESP 20
[2019-02-05 11:03] VITALS: BP 158/92; PULSE 112; TEMP 98.6; O2SAT 98
== END 2019-02-05 10:20 | disposition home or self-care (01) | DRG 897 ==
LOC: ED 18:27
DX: F10.10 Alcohol abuse, uncomplicated (principal); Y90.8 Blood alcohol level of 240 mg/100 ml or more
CPT/HCPCS: 36415; 80053; 80305; 80307; 83735; 84132; 85025; 96365; 96366; 96374; 96375; 99284; 99285; J0780; J2060; J2405; J2550; J3475; J3480; A9270-GY; J2001; J3411

== ENCOUNTER 2019-02-27 16:39 | Emergency (ER) | payer MEDICAID ==
[2019-02-27] MEDS ORDERED: SODIUM CHLORIDE 0.9% 1000ML 1,000 ML IV ONE (16:58)
[2019-02-27] MEDS: SODIUM CHLORIDE 0.9% 1000ML 1,000 ML IV SCH ×2 (17:00→18:31)
[2019-02-27] MEDS ORDERED: PANTOPRAZOLE SODIUM 40 MG/10 ML PDS IV ONE (17:01)
[2019-02-27] MEDS ORDERED: PANTOPRAZOLE SODIUM 40 MG/10 ML PDS ONE (17:02)
[2019-02-27] MEDS ORDERED: LORAZEPAM 2 MG/ML SOL IV ONE ×4 (17:08→18:31)
[2019-02-27] MEDS ORDERED: ONDANSETRON HCL 4 MG/2 ML SOL IV ONE (17:13)
[2019-02-27] MEDS ORDERED: LORAZEPAM 2 MG/ML SOL ONE ×3 (17:18→18:32)
[2019-02-27 17:19] LABS: ALBUMIN 3.6 gm/dl (3.4-5.0); BILIRUBIN,TOTAL 1.3 mg/dl (0.2-1.0); CALCIUM 9.5 mg/dl (8.5-10.1); CREATININE 2.7 mg/dl (0.80-1.30); TOTAL PROTEIN 8.7 gm/dl (6.4-8.2)
[2019-02-27 17:20] LABS: ALCOHOL 0.015 gm/dl (0.000-0.08)
[2019-02-27 17:21] LABS: MAGNESIUM 1.5 mg/dl (1.8-2.4)
[2019-02-27 17:22] LABS: BASOPHILS % (AUTO) 1 % (0-3); EOSINOPHILS % (AUTO) 0 % (0-9); HEMATOCRIT 50 % (39-53); HEMOGLOBIN 17.2 gm/dl (13.5-17.7); LYMPHOCYTES % (AUTO) 6.3 % (10-50); MEAN CORPUSCULAR HEMOGLOBIN 31.3 pg (27.0-32.0); MEAN CORPUSCULAR HGB CONC 34.4 gm/dl (32.0-36.0); MEAN CORPUSCULAR VOLUME 91 fL (80-100); MONOCYTES % (AUTO) 11.5 % (0-12); NEUTROPHILS % (AUTO) 81.5 % (37-80)
[2019-02-27] MEDS ORDERED: POTASSIUM CHLORIDE 2 MEQ/ML SOL IV ONE (17:25)
[2019-02-27] MEDS ORDERED: LIDOCAINE HCL 1% MPF 30 SOL ONE (17:30)
[2019-02-27] MEDS ORDERED: POTASSIUM CHLORIDE 2 MEQ/ML 60 MEQ, LIDOCAINE HCL 1% MDV 2 ML in SODIUM CHLORIDE 0.9% 1... IV ONE (17:40)
[2019-02-27 17:43] VITALS: TEMP 97.7
[2019-02-27] MEDS ORDERED: ONDANSETRON HCL 4 MG/2 ML SOL ONE (17:53)
[2019-02-27 18:25] LABS: APPEARANCE,URINE Clear; BILIRUBIN,URINE NEGATIVE (NEGATIVE); COLOR,URINE Dark yellow; GLUCOSE, URINE (UA) NEGATIVE (NEGATIVE); KETONES,URINE 1+ (NEGATIVE); LEUKOCYTE ESTERASE ,URINE NEGATIVE (NEGATIVE); NITRATE,URINE NEGATIVE (NEGATIVE); OCCULT BLOOD,URINE 2+ (NEG-TRACE); PH,URINE 5.5; UROBILINOGEN,URINE 0.2 (0.2-1.0 EU)
[2019-02-27 18:29] VITALS: O2SAT 97
[2019-02-27 18:33] LABS: EPITHELIAL CELLS 0-4 RENAL EPI (SQUAMOUS); RBC,URINE NEG (0-3AV/HPF); WBC,URINE NEG (0-5AV/HPF)
[2019-02-27 18:34] LABS: AMPHETAMINES NEGATIVE (NEGATIVE); BACTERIA NEGATIVE (< 1+); BARBITUATES NEGATIVE (NEGATIVE); BENZODIAZEPINES NEGATIVE (NEGATIVE); CANNABINOL(THC) NEGATIVE (NEGATIVE); COCAINE(COC) NEGATIVE (NEGATIVE); CRYSTALS NEGATIVE (0-3 AVE/HPF); METHADONE NEGATIVE (NEGATIVE); METHAMPHETAMINES NEGATIVE (NEGATIVE); OPIATES(OPI) NEGATIVE (NEGATIVE); OXYCODONE(OXY) NEGATIVE (NEGATIVE); PROPOXYPHENE(PPX) NEGATIVE (NEGATIVE); TRICYCLIC ANTIDEPRESSANTS NEGATIVE (NEGATIVE)
[2019-02-27 18:40] VITALS: BP 163/103; PULSE 122; RESP 24
== END 2019-02-27 18:37 | disposition short-term general hospital (02) | DRG 378 ==
LOC: ED 16:39
DX: K92.2 Gastrointestinal hemorrhage, unspecified (principal); F10.239 Alcohol dependence with withdrawal, unspecified; E87.6 Hypokalemia; Y90.0 Blood alcohol level of less than 20 mg/100 ml
CPT/HCPCS: 80053; 80305; 80307; 81001; 82272; 83735; 85025; 96365; 96374; 96375; 99285; 99291; J2060; J2405; J3480; J2001

== ENCOUNTER 2019-03-26 07:51 | Emergency (ER) | payer MEDICAID, OTHER ==
[2019-03-26] MEDS ORDERED: SODIUM CHLORIDE 0.9% 1000ML 1,000 ML IV ONE ×2 (08:05→10:35)
[2019-03-26] MEDS ORDERED: ONDANSETRON HCL 4 MG/2 ML SOL IV ONE (08:06)
[2019-03-26] MEDS ORDERED: ONDANSETRON HCL 4 MG/2 ML SOL ONE (08:07)
[2019-03-26] MEDS ORDERED: LORAZEPAM 2 MG/ML SOL ONE ×4 (08:07→10:17)
[2019-03-26] MEDS ORDERED: LORAZEPAM 2 MG/ML 10ML MDV 2 MG/ML VIAL IV ONE ×2 (08:11→08:55)
[2019-03-26 08:26] LABS: BASOPHILS % (AUTO) 1 % (0-3); EOSINOPHILS % (AUTO) 0 % (0-9); HEMATOCRIT 46 % (39-53); HEMOGLOBIN 15.6 gm/dl (13.5-17.7); LYMPHOCYTES % (AUTO) 15.7 % (10-50); MEAN CORPUSCULAR HEMOGLOBIN 30.2 pg (27.0-32.0); MEAN CORPUSCULAR HGB CONC 33.9 gm/dl (32.0-36.0); MEAN CORPUSCULAR VOLUME 89 fL (80-100); NEUTROPHILS % (AUTO) 79.7 % (37-80)
[2019-03-26 08:27] LABS: APPEARANCE,URINE Slightly Cloudy; BILIRUBIN,URINE NEGATIVE (NEGATIVE); COLOR,URINE Yellow; GLUCOSE, URINE (UA) NEGATIVE (NEGATIVE); KETONES,URINE NEGATIVE (NEGATIVE); LEUKOCYTE ESTERASE ,URINE NEGATIVE (NEGATIVE); NITRATE,URINE NEGATIVE (NEGATIVE); OCCULT BLOOD,URINE NEGATIVE (NEG-TRACE); PH,URINE 5.5; UROBILINOGEN,URINE 0.2 (0.2-1.0 EU)
[2019-03-26] MEDS ORDERED: POTASSIUM CHLORIDE 2 MEQ/ML 60 MEQ, LIDOCAINE HCL 1% MDV 2 ML in SODIUM CHLORIDE 0.9% 1... IV ONE (08:27)
[2019-03-26] MEDS ORDERED: POTASSIUM CHLORIDE 2 MEQ/ML SOL IV SCH (08:30)
[2019-03-26 08:33] VITALS: TEMP 98
[2019-03-26 08:36] LABS: ALBUMIN 3.6 gm/dl (3.4-5.0); BILIRUBIN,TOTAL 0.5 mg/dl (0.2-1.0); CALCIUM 8.2 mg/dl (8.5-10.1); CARBON DIOXIDE 27.5 mEq/L (21-32); CREATININE 1.23 mg/dl (0.80-1.30); MAGNESIUM 1.8 mg/dl (1.8-2.4); TOTAL PROTEIN 7.8 gm/dl (6.4-8.2)
[2019-03-26 08:37] LABS: POTASSIUM 2.9 mMol/L (3.5-5.1)
[2019-03-26 08:37] LABS: BACTERIA NEGATIVE (< 1+); CRYSTALS NEGATIVE (0-3 AVE/HPF); RBC,URINE NEG (0-3AV/HPF); WBC,URINE 0-1 (0-5AV/HPF)
[2019-03-26 08:38] LABS: AMPHETAMINES NEGATIVE (NEGATIVE); BARBITUATES NEGATIVE (NEGATIVE); BENZODIAZEPINES NEGATIVE (NEGATIVE); CANNABINOL(THC) NEGATIVE (NEGATIVE); COCAINE(COC) NEGATIVE (NEGATIVE); METHADONE NEGATIVE (NEGATIVE); METHAMPHETAMINES NEGATIVE (NEGATIVE); OPIATES(OPI) NEGATIVE (NEGATIVE); OXYCODONE(OXY) NEGATIVE (NEGATIVE); PROPOXYPHENE(PPX) NEGATIVE (NEGATIVE); TRICYCLIC ANTIDEPRESSANTS NEGATIVE (NEGATIVE)
[2019-03-26] MEDS ORDERED: POTASSIUM CHLORIDE 2 MEQ/ML SOL IV ONE (08:44)
[2019-03-26] MEDS ORDERED: LIDOCAINE HCL 1% MPF 30 SOL ONE (08:44)
[2019-03-26] MEDS: LORAZEPAM 2 MG/ML 10ML MDV 2 MG/ML VIAL IV PRN ×2 (09:46→10:19)
[2019-03-26] MEDS ORDERED: PROCHLORPERAZINE EDISYLATE 5 MG/ML SOL IV ONE (10:07)
[2019-03-26] MEDS ORDERED: PROCHLORPERAZINE EDISYLATE 5 MG/ML SOL ONE (10:16)
[2019-03-26 12:47] VITALS: BP 127/95; PULSE 125; RESP 28; O2SAT 92
== END 2019-03-26 11:22 | disposition short-term general hospital (02) | DRG 897 ==
LOC: ED 07:51
DX: F10.239 Alcohol dependence with withdrawal, unspecified (principal); F10.10 Alcohol abuse, uncomplicated; Y90.8 Blood alcohol level of 240 mg/100 ml or more
CPT/HCPCS: 80053; 80305; 80307; 81001; 83735; 84443; 85025; 96365; 96366; 96374; 96375; 99070; 99284; 99285; J0780; J2060; J2405; J3480; J2001

== ENCOUNTER 2019-04-03 23:05 | Observation (INO) | payer OTHER ==
[2019-04-03] MEDS ORDERED: PANTOPRAZOLE SODIUM 40 MG/10 ML PDS IV ONE (23:17)
[2019-04-03] MEDS ORDERED: METOCLOPRAMIDE HYDROCHLORIDE 5 MG/ML SOL IV ONE (23:18)
[2019-04-03 23:19] LABS: BASOPHILS % (AUTO) 2 % (0-3); EOSINOPHILS % (AUTO) 0 % (0-9); HEMATOCRIT 41 % (39-53); HEMOGLOBIN 14.4 gm/dl (13.5-17.7); LYMPHOCYTES % (AUTO) 44.1 % (10-50); MEAN CORPUSCULAR HEMOGLOBIN 31.1 pg (27.0-32.0); MEAN CORPUSCULAR HGB CONC 34.8 gm/dl (32.0-36.0); MEAN CORPUSCULAR VOLUME 89 fL (80-100); MONOCYTES % (AUTO) 12.6 % (0-12); NEUTROPHILS % (AUTO) 41.4 % (37-80)
[2019-04-03] MEDS ORDERED: METOCLOPRAMIDE HYDROCHLORIDE 5 MG/ML SOL ONE (23:19)
[2019-04-03] MEDS: SODIUM CHLORIDE 0.9% 1000ML 1,000 ML IV SCH (23:30)
[2019-04-03] MEDS ORDERED: PANTOPRAZOLE SODIUM 40 MG/10 ML PDS ONE (23:35)
[2019-04-03 23:42] LABS: ALBUMIN 3.1 gm/dl (3.4-5.0); ALKALINE PHOSPHATASE 111 IU/L (46-116); ALT 97 IU/L (14-63); AST 84 IU/L (15-37); BILIRUBIN,TOTAL 0.6 mg/dl (0.2-1.0); BLOOD UREA NITROGEN 6 mg/dl (7-18); CARBON DIOXIDE 25.4 mEq/L (21-32); CHLORIDE 101 mMol/L (98-107); GLUCOSE 165 mg/dl (74-106); POTASSIUM 2.8 mMol/L (3.5-5.1); SODIUM 140 mMol/L (136-145); TOTAL PROTEIN 7.1 gm/dl (6.4-8.2)
[2019-04-03 23:43] LABS: ACETAMINOPHEN < 2 ug/ml (10-30)
[2019-04-03] MEDS ORDERED: POTASSIUM CHLORIDE 2 MEQ/ML 60 MEQ, LIDOCAINE HCL 1% MDV 2 ML in SODIUM CHLORIDE 0.9% 1... IV ONE (23:45)
[2019-04-03] MEDS ORDERED: POTASSIUM CHLORIDE 10 MEQ TER ONE (23:46)
[2019-04-03] MEDS ORDERED: POTASSIUM CHLORIDE 2 MEQ/ML SOL IV ONE (23:50)
[2019-04-04 00:01] LABS: AMPHETAMINES NEGATIVE (NEGATIVE); BARBITUATES NEGATIVE (NEGATIVE); BENZODIAZEPINES POSITIVE (NEGATIVE); CANNABINOL(THC) NEGATIVE (NEGATIVE); COCAINE(COC) NEGATIVE (NEGATIVE); METHAMPHETAMINES NEGATIVE (NEGATIVE); OPIATES(OPI) NEGATIVE (NEGATIVE); OXYCODONE(OXY) NEGATIVE (NEGATIVE); PROPOXYPHENE(PPX) NEGATIVE (NEGATIVE)
[2019-04-04] MEDS ORDERED: POTASSIUM CHLORIDE 2 MEQ/ML SOL IV ONE (00:02)
[2019-04-04] MEDS ORDERED: PROCHLORPERAZINE EDISYLATE 5 MG/ML SOL ONE (00:18)
[2019-04-04] MEDS ORDERED: PROCHLORPERAZINE EDISYLATE 5 MG/ML SOL IV ONE (00:27)
[2019-04-04] MEDS: SODIUM CHLORIDE 0.9% 1000ML 1,000 ML IV SCH ×5 (00:31→16:03)
[2019-04-04] MEDS ORDERED: PROCHLORPERAZINE EDISYLATE 5 MG/ML SOL IV PRN (01:00)
[2019-04-04] MEDS ORDERED: LORAZEPAM 2 MG/ML 10ML MDV 2 MG/ML VIAL IV PRN (01:25)
[2019-04-04] MEDS: METOCLOPRAMIDE HYDROCHLORIDE 5 MG/ML SOL IV SCH ×4 (01:42→18:22)
[2019-04-04] MEDS ORDERED: LORAZEPAM 0.5 MG TAB PO PRN (01:51)
[2019-04-04] MEDS ORDERED: LORAZEPAM 2 MG/ML SOL IV PRN (01:51)
[2019-04-04] MEDS: SODIUM CHLORIDE 0.9% FLUSH 10 ML SOL IV SCH ×4 (02:10→18:22)
[2019-04-04] MEDS: ONDANSETRON HCL 4 MG/2 ML SOL IV PRN ×3 (02:14→15:57)
[2019-04-04 08:25] LABS: POTASSIUM 3.9 mMol/L (3.5-5.1)
[2019-04-04 08:27] LABS: ALCOHOL 0.11 gm/dl (0.000-0.08)
[2019-04-04] MEDS ORDERED: PANTOPRAZOLE SODIUM 40 MG/10 ML PDS IV SCH (09:00)
[2019-04-04] MEDS: FOLIC ACID 1 MG TAB PO SCH (09:49)
[2019-04-04] MEDS: GABAPENTIN 300 MG CAP PO SCH ×3 (09:49→22:35)
[2019-04-04] MEDS: AMLODIPINE 5 MG TAB PO SCH (09:49)
[2019-04-04] MEDS: THIAMINE 100 MG TAB PO SCH (09:49)
[2019-04-04] MEDS: MULTIVITAMIN2 1 EA TAB PO SCH (09:49)
[2019-04-04] MEDS: LISINOPRIL 5 MG TAB PO SCH (09:49)
[2019-04-04] MEDS ORDERED: ONDANSETRON HCL 4 MG TAB PO PRN (18:26)
[2019-04-04] MEDS: ALUMINUM/MAGNESIUM 30 ML SUS PO PRN ×2 (20:41→22:34)
[2019-04-04 20:45] VITALS: O2SAT 98
[2019-04-04] MEDS ORDERED: MIRTAZAPINE 15 MG TAB PO SCH (21:00)
[2019-04-05 06:18] VITALS: BP 147/95; PULSE 88; RESP 16; TEMP 98.5
[2019-04-05] MEDS: SODIUM CHLORIDE 0.9% FLUSH 10 ML SOL IV SCH (06:22)
[2019-04-05] MEDS: ALUMINUM/MAGNESIUM 30 ML SUS PO PRN (07:35)
[2019-04-05] MEDS: THIAMINE 100 MG TAB PO SCH (08:47)
[2019-04-05] MEDS: MULTIVITAMIN2 1 EA TAB PO SCH (08:47)
[2019-04-05] MEDS: AMLODIPINE 5 MG TAB PO SCH (08:47)
[2019-04-05] MEDS: LISINOPRIL 5 MG TAB PO SCH (08:47)
[2019-04-05] MEDS: FOLIC ACID 1 MG TAB PO SCH (08:48)
[2019-04-05] MEDS: GABAPENTIN 300 MG CAP PO SCH (08:48)
[2019-04-05] MEDS ORDERED: PANTOPRAZOLE SODIUM 40 MG ECT PO SCH (09:00)
[2019-04-05 09:37] LABS: HEMATOCRIT 42 % (39-53); HEMOGLOBIN 13.9 gm/dl (13.5-17.7); MEAN CORPUSCULAR HEMOGLOBIN 30.4 pg (27.0-32.0); MEAN CORPUSCULAR HGB CONC 33.1 gm/dl (32.0-36.0); MEAN CORPUSCULAR VOLUME 92 fL (80-100)
[2019-04-05 09:41] LABS: BILIRUBIN,TOTAL 1.2 mg/dl (0.2-1.0); CALCIUM 8.7 mg/dl (8.5-10.1); CREATININE 1.02 mg/dl (0.80-1.30); POTASSIUM 3.5 mMol/L (3.5-5.1)
[2019-04-05 10:19] LABS: BAND NEUTROPHILS % (MANUAL) 1 %; BASOPHILS % (MANUAL) 0 % (0-3); EOSINOPHILS % (MANUAL) 0 % (0-9); LYMPHOCYTES % (MANUAL) 31 % (10-50); MONOCYTES % (MANUAL) 17 % (0-12); NEUTROPHILS % (MANUAL) 51 % (37-80); NORMAL RBCS PRESENT
== END 2019-04-05 10:15 | disposition left against medical advice (07) | DRG 897 ==
LOC: ED 23:05 → ACUTE CARE 04-04 00:45
PROVIDERS: ADMIT Family Medicine; ATTEND Family Medicine
DX: F10.920 Alcohol use, unspecified with intoxication, uncomplicated (principal); E87.6 Hypokalemia; R56.9 Unspecified convulsions; Y90.8 Blood alcohol level of 240 mg/100 ml or more; F10.129 Alcohol abuse with intoxication, unspecified; F10.231 Alcohol dependence with withdrawal delirium; Z53.21 Procedure and treatment not carried out due to patient leaving prior to being seen by health care provider
CPT/HCPCS: 36415; 70450; 80053; 80305; 80307; 83735; 84132; 85007; 85025; 85027; 93005; 93012; 96365; 96374; 96375; 99070; 99217; 99218; 99285; J0780; J2060; J2405; J2765; J3480; A9270-GY; J2001

== ENCOUNTER 2019-04-19 05:32 | Inpatient (IN) | payer OTHER ==
[2019-04-19] MEDS: SODIUM CHLORIDE 0.9% 1000ML 1,000 ML IV SCH ×7 (05:45→19:35)
[2019-04-19] MEDS: SODIUM CHLORIDE 0.9% FLUSH 10 ML SOL IV SCH ×3 (05:45→21:35)
[2019-04-19] MEDS ORDERED: METOCLOPRAMIDE HYDROCHLORIDE 5 MG/ML SOL IV PRN (05:48)
[2019-04-19] MEDS ORDERED: PROCHLORPERAZINE EDISYLATE 5 MG/ML SOL IV ONE (05:48)
[2019-04-19] MEDS ORDERED: PANTOPRAZOLE SODIUM 40 MG/10 ML PDS IV ONE (05:48)
[2019-04-19] MEDS ORDERED: PROCHLORPERAZINE EDISYLATE 5 MG/ML SOL ONE (05:50)
[2019-04-19] MEDS ORDERED: METOCLOPRAMIDE HYDROCHLORIDE 5 MG/ML SOL ONE (05:50)
[2019-04-19] MEDS ORDERED: PANTOPRAZOLE SODIUM 40 MG/10 ML PDS ONE (05:50)
[2019-04-19 06:09] LABS: BASOPHILS % (AUTO) 2 % (0-3); EOSINOPHILS % (AUTO) 0 % (0-9); HEMATOCRIT 47 % (39-53); HEMOGLOBIN 16.2 gm/dl (13.5-17.7); LYMPHOCYTES % (AUTO) 28.9 % (10-50); MEAN CORPUSCULAR HEMOGLOBIN 30.7 pg (27.0-32.0); MEAN CORPUSCULAR HGB CONC 34.1 gm/dl (32.0-36.0); MEAN CORPUSCULAR VOLUME 90 fL (80-100); MONOCYTES % (AUTO) 10.3 % (0-12); NEUTROPHILS % (AUTO) 59.1 % (37-80)
[2019-04-19 06:23] LABS: ALBUMIN 3.4 gm/dl (3.4-5.0); BILIRUBIN,TOTAL 0.5 mg/dl (0.2-1.0); CALCIUM 7.9 mg/dl (8.5-10.1); CARBON DIOXIDE 25.6 mEq/L (21-32); CREATININE 1.1 mg/dl (0.80-1.30); MAGNESIUM 2.4 mg/dl (1.8-2.4); POTASSIUM 3.1 mMol/L (3.5-5.1); TOTAL PROTEIN 7.8 gm/dl (6.4-8.2)
[2019-04-19 06:24] LABS: ALCOHOL 0.413 gm/dl (0.000-0.08)
[2019-04-19 06:47] LABS: APPEARANCE,URINE Clear; BILIRUBIN,URINE NEGATIVE (NEGATIVE); COLOR,URINE Yellow; GLUCOSE, URINE (UA) NEGATIVE (NEGATIVE); KETONES,URINE NEGATIVE (NEGATIVE); LEUKOCYTE ESTERASE ,URINE NEGATIVE (NEGATIVE); NITRATE,URINE NEGATIVE (NEGATIVE); OCCULT BLOOD,URINE TRACE LYSED (NEG-TRACE); PH,URINE 6.5; UROBILINOGEN,URINE 0.2 (0.2-1.0 EU)
[2019-04-19 06:58] LABS: AMPHETAMINES NEGATIVE (NEGATIVE); BACTERIA RARE (< 1+); BARBITUATES NEGATIVE (NEGATIVE); BENZODIAZEPINES POSITIVE (NEGATIVE); CANNABINOL(THC) NEGATIVE (NEGATIVE); COCAINE(COC) NEGATIVE (NEGATIVE); CRYSTALS NEGATIVE (0-3 AVE/HPF); EPITHELIAL CELLS NEGATIVE (SQUAMOUS); METHAMPHETAMINES NEGATIVE (NEGATIVE); OPIATES(OPI) NEGATIVE (NEGATIVE); OXYCODONE(OXY) NEGATIVE (NEGATIVE); PROPOXYPHENE(PPX) NEGATIVE (NEGATIVE); RBC,URINE 0-1 (0-3AV/HPF); WBC,URINE NEG (0-5AV/HPF)
[2019-04-19] MEDS ORDERED: CLONIDINE 0.1 MG TAB PO ONE (07:08)
[2019-04-19] MEDS ORDERED: POTASSIUM CHLORIDE 2 MEQ/ML 40 MEQ, LIDOCAINE HCL 1% MDV 2 ML in SODIUM CHLORIDE 0.9% 5... IV ONE (07:09)
[2019-04-19] MEDS ORDERED: LIDOCAINE HCL 1% MPF 30 SOL ONE (07:18)
[2019-04-19] MEDS ORDERED: POTASSIUM CHLORIDE 2 MEQ/ML SOL IV ONE (07:18)
[2019-04-19] MEDS ORDERED: THIAMINE 100 MG/ML 100 MG/ML SOL IV ONE (07:37)
[2019-04-19] MEDS ORDERED: THIAMINE 100 MG/ML 100 MG/ML SOL ONE (07:47)
[2019-04-19] MEDS ORDERED: LORAZEPAM 2 MG/ML 10ML MDV 2 MG/ML VIAL IV PRN ×3 (07:59→14:19)
[2019-04-19] MEDS ORDERED: LORAZEPAM 2 MG/ML SOL IV ONE ×2 (08:06→11:45)
[2019-04-19] MEDS ORDERED: GABAPENTIN 300 MG CAP PO ONE (08:07)
[2019-04-19] MEDS ORDERED: LORAZEPAM 2 MG/ML SOL ONE ×2 (08:08→11:52)
[2019-04-19] MEDS ORDERED: GABAPENTIN 300 MG CAP ONE (08:20)
[2019-04-19] MEDS ORDERED: KETOROLAC TROMETHAMINE 30 MG/ML SOL IV ONE ×2 (08:20→18:45)
[2019-04-19] MEDS ORDERED: ONDANSETRON HCL 4 MG/2 ML SOL ONE (08:25)
[2019-04-19] MEDS ORDERED: ONDANSETRON HCL 4 MG/2 ML SOL IV ONE (08:25)
[2019-04-19] MEDS ORDERED: KETOROLAC TROMETHAMINE 30 MG/ML SOL ONE (08:30)
[2019-04-19 08:49] LABS: TROP I < 0.017 ng/ml (0.000-0.056)
[2019-04-19] MEDS ORDERED: GABAPENTIN 300 MG CAP PO SCH (09:00)
[2019-04-19] MEDS: LORAZEPAM 0.5 MG TAB PO PRN ×2 (14:54→17:10)
[2019-04-19] MEDS: GABAPENTIN 300 MG CAP PO SCH ×2 (14:54→20:13)
[2019-04-19] MEDS: AMLODIPINE 5 MG TAB PO SCH (14:55)
[2019-04-19] MEDS: LISINOPRIL 5 MG TAB PO SCH (14:56)
[2019-04-19] MEDS ORDERED: SODIUM CHLORIDE 0.9% 1000ML 1,000 ML IV SCH (19:12)
[2019-04-19] MEDS: MIRTAZAPINE 15 MG TAB PO SCH (20:13)
[2019-04-20] MEDS ORDERED: KETOROLAC TROMETHAMINE 30 MG/ML SOL IV SCH (03:00)
[2019-04-20] MEDS ORDERED: KETOROLAC TROMETHAMINE 30 MG/ML SOL IV PRN (04:13)
[2019-04-20] MEDS: SODIUM CHLORIDE 0.9% FLUSH 10 ML SOL IV SCH ×4 (05:43→22:36)
[2019-04-20 07:11] LABS: BASOPHILS % (AUTO) 1 % (0-3); EOSINOPHILS % (AUTO) 1 % (0-9); HEMATOCRIT 40 % (39-53); HEMOGLOBIN 13.5 gm/dl (13.5-17.7); LYMPHOCYTES % (AUTO) 18.2 % (10-50); MEAN CORPUSCULAR HGB CONC 33.4 gm/dl (32.0-36.0); MEAN CORPUSCULAR VOLUME 93 fL (80-100); MONOCYTES % (AUTO) 7.6 % (0-12); NEUTROPHILS % (AUTO) 72.2 % (37-80)
[2019-04-20 07:29] LABS: ALBUMIN 2.5 gm/dl (3.4-5.0); ALKALINE PHOSPHATASE 143 IU/L (46-116); ALT 120 IU/L (14-63); AST 196 IU/L (15-37); BILIRUBIN,TOTAL 1.1 mg/dl (0.2-1.0); BLOOD UREA NITROGEN 5 mg/dl (7-18); CARBON DIOXIDE 28.5 mEq/L (21-32); CHLORIDE 102 mMol/L (98-107); CREATININE 0.86 mg/dl (0.80-1.30); GLUCOSE 97 mg/dl (74-106); POTASSIUM 3.6 mMol/L (3.5-5.1); SODIUM 137 mMol/L (136-145); TOTAL PROTEIN 6.3 gm/dl (6.4-8.2)
[2019-04-20 07:31] LABS: ALCOHOL < 0.003 gm/dl (0.000-0.08)
[2019-04-20] MEDS: GABAPENTIN 300 MG CAP PO SCH ×3 (08:39→20:11)
[2019-04-20] MEDS: LISINOPRIL 5 MG TAB PO SCH (08:39)
[2019-04-20] MEDS: MULTIVITAMIN2 1 EA TAB PO SCH (08:39)
[2019-04-20] MEDS: IBUPROFEN 600 MG TAB PO PRN ×3 (08:39→23:25)
[2019-04-20] MEDS: AMLODIPINE 5 MG TAB PO SCH (08:40)
[2019-04-20] MEDS: PANTOPRAZOLE SODIUM 40 MG ECT PO SCH (08:49)
[2019-04-20] MEDS: FOLIC ACID 1 MG TAB PO SCH (08:57)
[2019-04-20] MEDS: THIAMINE 100 MG TAB PO SCH (08:57)
[2019-04-20] MEDS ORDERED: OMEPRAZOLE 20 MG CAPSULE PO SCH (09:00)
[2019-04-20] MEDS: APAP/HYDROCODONE 1 EACH TABLET PO PRN ×2 (14:55→20:10)
[2019-04-20] MEDS: MIRTAZAPINE 15 MG TAB PO SCH (20:11)
[2019-04-21] MEDS: APAP/HYDROCODONE 1 EACH TABLET PO PRN ×2 (02:12→06:23)
[2019-04-21 04:49] VITALS: O2SAT 95
[2019-04-21] MEDS: IBUPROFEN 600 MG TAB PO PRN (05:01)
[2019-04-21] MEDS: SODIUM CHLORIDE 0.9% FLUSH 10 ML SOL IV SCH (06:25)
[2019-04-21 08:22] VITALS: BP 161/109; PULSE 100; RESP 18; TEMP 98.8
[2019-04-21] MEDS: FOLIC ACID 1 MG TAB PO SCH (09:11)
[2019-04-21] MEDS: AMLODIPINE 5 MG TAB PO SCH (09:11)
[2019-04-21] MEDS: PANTOPRAZOLE SODIUM 40 MG ECT PO SCH (09:11)
[2019-04-21] MEDS: GABAPENTIN 300 MG CAP PO SCH (09:11)
[2019-04-21] MEDS: LISINOPRIL 5 MG TAB PO SCH (09:12)
[2019-04-21] MEDS: THIAMINE 100 MG TAB PO SCH (09:12)
[2019-04-21] MEDS: MULTIVITAMIN2 1 EA TAB PO SCH (09:12)
== END 2019-04-21 10:17 | disposition home or self-care (01) | DRG 897 ==
LOC: ED 05:32 → UNDOADMIN 12:38 → ACUTE CARE 12:38
PROVIDERS: ADMIT Internal Medicine; ATTEND Internal Medicine
DX: F10.920 Alcohol use, unspecified with intoxication, uncomplicated (principal); F10.10 Alcohol abuse, uncomplicated; F10.239 Alcohol dependence with withdrawal, unspecified; Y90.8 Blood alcohol level of 240 mg/100 ml or more; I10 Essential (primary) hypertension
CPT/HCPCS: 36415; 71045; 80053; 80305; 80307; 81001; 83690; 83735; 83880; 84132; 84484; 85025; 93005; 93012; 94762; 96365; 96366; 96374; 96375; 99222; 99285; J0780; J1885; J2060; J2405; J2765; J3480; A9270-GY; J2001; J3411